=== PATIENT | male | born 1960 | race Caucasian/White ===

== ENCOUNTER 2019-07-09 14:24 | Emergency (ER) | payer OTHER, SELFPAY ==
[2019-07-09 14:25] VITALS: BP 163/91; PULSE 88; RESP 17; TEMP 36.2; O2SAT 100; BMI 27.3
[2019-07-09] MEDS: 0.9% Normal Saline 1,000 ML 999 ML IV (14:46)
[2019-07-09] MEDS: fentaNYL 100 MCG/2 ML Ampul 50 MCG IV ×2 (14:47→15:13)
[2019-07-09] MEDS: Diphth,Pertuss(Acell),Tet Vac 0.5 ML Vial IM (14:48)
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
[2019-07-09 15:05] VITALS: BP 140/91; PULSE 67; PULSE 76; RESP 16; RESP 20; O2SAT 97; O2SAT 98
[2019-07-09 15:08] VITALS: BP 155/105; PULSE 72; RESP 18; O2SAT 100
== END 2019-07-09 15:20 | disposition designated cancer center or children's hospital (05) ==
PROVIDERS: Emergency Provider Emergency Medicine
DX: T20.20XA Burn of second degree of head, face, and neck, unspecified site, initial encounter (principal); T22.20XA Burn of second degree of shoulder and upper limb, except wrist and hand, unspecified site, initial encounter; T31.0 Burns involving less than 10% of body surface; W40.8XXA Explosion of other specified explosive materials, initial encounter; Y93.9 Activity, unspecified; Y92.9 Unspecified place or not applicable
CPT/HCPCS: 90715; 96361; 96374; 99285; A4216

== ENCOUNTER 2020-05-03 13:35 | Outpatient (RCR) | payer BC, SELFPAY ==
[2020-05-03] MEDS: COVID-19 VACC, MRNA(PFIZER)/PF 30 MCG/0.3 ML SYRINGE IM (18:19)
[2020-05-24] MEDS: COVID-19 VACC, MRNA(PFIZER)/PF 30 MCG/0.3 ML SYRINGE IM (18:03)
== END 2020-05-03 23:59 ==
LOC: IMMUN 13:35
PROVIDERS: Referring Provider Family Medicine; Visit Provider Family Medicine
DX: Z23 Encounter for immunization (principal)
CPT/HCPCS: 0001A; 0002A; 91300